=== PATIENT | male | born 1950 | race Caucasian/White ===

== ENCOUNTER 2017-09-29 10:18 | Outpatient (CLI) | payer MEDICARE ==
--- NOTE | 2017-09-29 14:15 | HP ---
DATE OF SERVICE: 09/29/2017 HISTORY OF PRESENT ILLNESS: Mr. Austin Ardon is a very pleasant 67-year-old gentleman who present s to the [facility] for evaluation of multiple wounds of the right upper extremity. The patient st ates that he fell into a cactus approximately 4 months ago. He states that the wounds of his right u pper extremity may have developed from the fall into cactus. Alternatively, he states the wounds may have developed from abrasions or perhaps a combination of both. The patient states that one of the wounds was cultured in the past and he received 4 rounds of p.o. antibiotics for treatment of Staphyl ococcal infection. The patient states he was treated with 2 courses of Bactrim in addition to 2 cour ses of 2 different p.o. antibiotics. The patient states that 13 days ago one of his wounds was cultu red again. The patient was referred to the Wound Center by Dr. Ocampo. The patient states that for 1 month, he treated his wounds with hydrogen peroxide. The patient states that he has fallen into cact us in the past and developed wounds from his fall. PAST MEDICAL HISTORY: Negative for diabetes mellitus, hypertension, or coronary artery disease. PAST SURGICAL HISTORY: Negative. MEDICATION: Multivitamin. ALLERGIES: No known diagnosed allergies. SOCIAL HISTORY: Significant for smoking cigars intermittently for less than 1 year in the past. The patient admits to the heavy consumption of alcohol in the past. He states that he stopped consuming alcohol in 03/2017. FAMILY HISTORY: Negative for diabetes mellitus or coronary artery disease. PHYSICAL EXAMINATION: VITAL SIGNS: Temperature 98.1, pulse 94, blood pressure 165/67. GENERAL: A 67-year-old gentleman sitting on table in examination room in no acute distress. HEENT: Normocephalic, atraumatic. NECK: No nuchal rigidity. CHEST: Clear to auscultation. CARDIOVASCULAR: Regular rate and rhythm. ABDOMEN: Soft. EXTREMITIES: A wound of the dorsum of the right hand is present which measures approximately 3.5 x 2 .0 cm. Two wounds of the right forearm are also present which measure approximately 2.5 x 2.5 cm and 5.0 x 2.0 cm. Granulation tissue is present within the margins of each wound. Necrotic and nonviab le tissue present within the margins of each wound was debrided with an excisional full-thickness reed ridement with the use of scissors and a curette. No purulent drainage is associated with any of the wounds. No erythema of the skin surrounding any of the wounds is present. No maceration of the skin of the periwound of any of the wounds is noted. No significant edema of the right upper extremity i s present on exam today. NEUROLOGIC: Grossly nonfocal. ASSESSMENT AND PLAN: Multiple wounds of right upper extremity as described above. Each wound will b e dressed with Xeroform gauze, Webril, an Soy bandage, and Coban. The patient is to leave the dressi ngs applied in clinic today intact until his followup visit in 1 week. No antibiotics will be prescr ibed today based upon the appearance of the wounds. The patient understands and is in agreement with the preceding treatment plan. All laboratory results in regard to the patient's right upper extremi ty wounds will be obtained from Dr. Ocampo.
[2017-09-29] MEDS ORDERED: Sodium Chloride 0.9% 15 ML NEB ONE (17:01)
[2017-09-29] MEDS ORDERED: Lidocaine 2% Jelly 5 ML TUBE ONE (17:01)
== END 2017-09-29 10:19 | disposition home or self-care (01) ==
LOC: WCC 10:18
PROVIDERS: ATTEND Family Medicine
DX: S61.401D Unspecified open wound of right hand, subsequent encounter (principal); S51.801D Unspecified open wound of right forearm, subsequent encounter
CPT/HCPCS: A4218

== ENCOUNTER 2017-10-06 09:25 | Outpatient (CLI) | payer MEDICARE ==
--- NOTE | 2017-10-06 10:41 | PRG ---
DATE OF SERVICE: 10/06/2017 HISTORY: Mr. Austin Ardon is a very pleasant 67-year-old gentleman who presents to the Wound Cent er for evaluation of multiple wounds of the right upper extremity. The patient previously stated janny t he fell into a cactus approximately 4 months prior to his initial presentation to the Wound Center. He stated that the wounds of his right upper extremity may have developed from the fall into cactus . Alternatively, the patient stated the wounds may have developed from abrasions or perhaps a combin ation of both. The patient stated that one of the wounds was cultured in the past and he received 4 rounds of p.o. antibiotics for treatment of a Staphylococcal infection. The patient stated he was tr eated with 2 courses of Bactrim in addition to 2 courses of 2 different p.o. antibiotics. The patien t stated that 13 days prior to his initial presentation to the Wound Center one of his wounds was cul tured again. The patient was referred to the Wound Center by Dr. Ocampo. The patient stated that for 1 month he treated his wounds with hydrogen peroxide. The patient stated that he had fallen into cact us in the past and also developed wounds from his fall. After being seen in the Wound Center, Xerofo rm gauze, Webril, and an Soy bandage, and Coban were applied to the wounds of the right upper extremi ty. PHYSICAL EXAMINATION: VITAL SIGNS: Temperature 98.1, pulse 88, respirations 16, blood pressure 121/75. EXTREMITIES: A wound of the dorsum of the right hand is present which measures approximately 3.3 x 2 .8 cm. Two wounds of the right forearm are also present which measure approximately 2.6 x 2.3 cm and 4.0 x 3.5 cm. Granulation tissue is present within the margins of each wound. No purulent drainage is associated with any of the wounds. No erythema of the skin surrounding any of the wounds is pres ent. No maceration of the skin of the periwound of any of the wounds is noted. No significant edema of the right upper extremity is present on exam today. ASSESSMENT AND PLAN: Multiple wounds of right upper extremity as described above. Each wound will a gain be dressed with Xeroform gauze, Webril, an Soy bandage, and Coban. The patient has been asked t o leave the dressings applied in clinic today intact until his followup visit in 1 week.
[2017-10-06] MEDS ORDERED: Sodium Chloride 0.9% 15 ML NEB ONE (12:00)
[2017-10-06] MEDS ORDERED: Lidocaine 2% Jelly 5 ML TUBE ONE (12:00)
== END 2017-10-06 09:26 | disposition home or self-care (01) ==
LOC: WCC 09:25
PROVIDERS: ATTEND Family Medicine
DX: L98.499 Non-pressure chronic ulcer of skin of other sites with unspecified severity (principal)

== ENCOUNTER 2017-10-13 14:14 | Outpatient (CLI) | payer MEDICARE ==
[~2017-10-13 14:14] MED LIST: Lidocaine 2% Jelly 5 ML TUBE ONE; Sodium Chloride 0.9% 15 ML NEB ONE
--- NOTE | 2017-10-13 17:57 | PRG ---
DATE OF SERVICE: 10/13/2017 HISTORY: Mr. Austin Ardon is a very pleasant 67-year-old gentleman who presents to the Wound Cent er for evaluation of multiple wounds of the right upper extremity. The patient previously stated janny t he fell into a cactus approximately 4 months prior to his initial presentation to the Wound Center. He stated that the wounds of his right upper extremity may have developed from the fall into cactus . Alternatively, the patient stated the wounds may have developed from abrasions or perhaps a combin ation of both. The patient stated that one of the wounds was cultured in the past and he received 4 rounds of p.o. antibiotics for treatment of a Staphylococcal infection. The patient stated he was tr eated with 2 courses of Bactrim in addition to 2 courses of 2 different p.o. antibiotics. The patien t stated that 13 days prior to his initial presentation to the Wound Center, one of his wounds was cu ltured again. The patient was referred to the Wound Center by Dr. Ocampo. The patient stated that for one month, he treated his wounds with hydrogen peroxide. The patient stated that he had fallen into cactus in the past and also developed wounds from this fall. After being seen in the Wound Center, Xeroform gauze, Webril, Soy, and Coban were applied to the wounds of the right upper extremity. PHYSICAL EXAMINATION: VITAL SIGNS: Temperature 98.3, pulse 73, respirations 18, blood pressure 132/74. EXTREMITIES: A wound of the dorsum of the right hand is present, which measures approximately 3.8 x 1.8 cm. Two wounds of the right forearm are present, which measure approximately 2.5 x 1.9 cm and 4. 0 x 3.0 cm. Granulation tissue is present within the margins of each wound. No purulent drainage is associated with any of the wounds. No erythema of the skin surrounding any of the wounds is present . No maceration of the skin of the periwound of any of the wounds is noted. No significant edema of the right upper extremity is present on exam today. Each wound is characterized by irregular border s. 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 Biopsy of the wounds will be considered if the wounds fail to resolve with the pr esent dressing changes of Xeroform gauze. Each wound will again be dressed with Xeroform gauze, Webr il, an Soy bandage, and Coban. Again, I have asked the patient to leave the dressings applied in cli miquel today intact until his followup visit in 1 week. The patient understands and is in agreement wit h the preceding treatment plan.
== END 2017-10-13 14:15 | disposition home or self-care (01) ==
LOC: WCC 14:14
PROVIDERS: ATTEND Family Medicine
DX: S51.801D Unspecified open wound of right forearm, subsequent encounter (principal); S61.401D Unspecified open wound of right hand, subsequent encounter
CPT/HCPCS: 29581; A4218

== ENCOUNTER 2017-10-20 11:08 | Outpatient (CLI) | payer MEDICARE ==
[~2017-10-20 11:08] MED LIST changes: -Lidocaine 2% Jelly 5 ML TUBE ONE
--- NOTE | 2017-10-20 14:23 | PRG ---
DATE OF SERVICE: 10/20/2017 HISTORY: Mr. Austin Ardon is a very pleasant 67-year-old gentleman who presents to the Wound Cent er for evaluation of multiple wounds of the right upper extremity. The patient previously stated janny t he fell into a cactus approximately 4 months prior to his initial presentation to the Wound Center. He stated that the wounds of his right upper extremity may have developed from a fall into cactus. Alternatively, the patient stated the wounds may have developed from the abrasions or perhaps a comb ination of both. The patient stated that one of the wounds was cultured in the past and he received 4 rounds of p.o. antibiotics for treatment of Staphylococcal infection. The patient stated he was tr eated with 2 courses of Bactrim in addition to 2 courses of 2 different p.o. antibiotics. The patien t stated that 13 days prior to his initial presentation to the Wound Center, one of his wound was cul tured again. The patient was referred to the Wound Center by Dr. Ocampo. The patient stated that for one month, he treated his wounds with hydrogen peroxide. The patient stated that he had fallen into cactus in the past and also developed wounds from this fall. After being seen in the Wound Center, X eroform gauze, Webril, Soy, and Coban were applied to the wounds of the right upper extremity. The [place] has been receiving these dressing changes on a weekly basis. PHYSICAL EXAMINATION: VITAL SIGNS: Temperature 98.2, pulse 81, respirations 18, and blood pressure 131/78. EXTREMITIES: A wound of the dorsum of the right hand is present which measures approximately 4.0 x 3 .0 cm. Two wounds of the right forearm are present which measure approximately 3.0 x 2.5 cm and 5.0 x 3.0 cm. The periwound of the distal right forearm lesion was prepped with alcohol and Betadine. I njectable lidocaine was then utilized to achieve local anesthesia. Four punch biopsy specimens were obtained, three from the periwound and one from the center of the wound and sent to pathology in [facility]. These specimens from the periwound three contained approximately one half skin and one lorenzo lf ulcer. Surgicel was utilized to achieve hemostasis by packing into each biopsy site. All right u pper extremity wounds were then dressed with Xeroform gauze, Webril, Soy, and Coban. ASSESSMENT AND PLAN: Multiple wounds of right upper extremity as described above consistent with pyo derma gangrinosum. Biopsy of one of the wounds was obtained today to look for findings consistent wi th pyoderma gangrenosum and to rule out fungus. I will see Mr. Ardon again in one week. At this shiloh e, he will be given the results of the biopsy. Again, I have asked the patient to leave the dressing s applied in clinic today intact until his followup visit in 1 week.
== END 2017-10-20 11:09 | disposition home or self-care (01) ==
LOC: WCC 11:08
PROVIDERS: ATTEND Family Medicine
DX: L98.498 Non-pressure chronic ulcer of skin of other sites with other specified severity (principal); L30.9 Dermatitis, unspecified; I96 Gangrene, not elsewhere classified
CPT/HCPCS: 11100; 88305; 88312

== ENCOUNTER 2017-10-27 10:56 | Outpatient (CLI) | payer MEDICARE ==
--- NOTE | 2017-10-27 15:29 | PRG ---
DATE OF SERVICE: 10/27/2017 SUBJECTIVE: Mr. Austin Ardon is a very pleasant 67-year-old gentleman who presents to the Wound C enter for evaluation of multiple wounds of the right upper extremity. Biopsy of one of the 2 wounds of the right forearm was obtained at the time of the patient's last visit which returned with histolo gic findings supportive of pyoderma gangrinosum. Biopsy revealed no fungal organisms or dysplasia/ma lignancy. For his wounds, Mr. Ardon has been receiving dressing changes of Xeroform gauze, Webril, A ce, and Coban on a weekly basis here in the Wound Center. OBJECTIVE: VITAL SIGNS: Temperature 97.6, pulse 78, respirations 19, blood pressure 112/78. EXTREMITIES: All three wounds of the right upper extremity have improved in their appearance since t he patient's last visit. No purulent drainage is associated with any of the wounds. No erythema of the skin surrounding any of the wounds is present. No maceration of the skin of the periwound of any of the wounds is noted. 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 Biopsy of one of the 2 forearm wounds was obtained at the time of the patient's l ast visit and the histologic findings also returned supportive of the clinical impression of pyoderma gangrenosum. The patient has been given a prescription for clobetasol 0.05% ointment to be applied to the wounds on a daily basis after cleansing and irrigation. The patient has been given the result s of his biopsy today. I will see Mr. Ardon again in 2-3 weeks. The patient has been told he may dr ess his wounds as needed with Krist[facility]. The patient understands and is in agreement with the preceding treatment plan.
== END 2017-10-27 10:57 | disposition home or self-care (01) ==
LOC: WCC 10:56
PROVIDERS: ATTEND Family Medicine
DX: S51.801D Unspecified open wound of right forearm, subsequent encounter (principal)
CPT/HCPCS: 97602

== ENCOUNTER 2019-04-02 16:56 | Inpatient (IN) | payer MEDICARE ==
--- NOTE | 2019-04-02 17:27 | RAD ---
EXAM: Single view of the chest HISTORY: Cough COMPARISON: None FINDINGS: Single view of the chest shows a normal sized cardiomediastinal silhouette. There is consol idation in the left lower lobe consistent with an infiltrate. An adjacent pleural effusion may be present. The bones are unremarkable. IMPRESSION: Left lower lobe infiltrate and possible adjacent pleural effusion.
[2019-04-02 17:39] LABS: Hemoglobin 12.9 g/dL (14.0-18.0); Mean Corpuscular HGB CONC 33.5 g/dL (32.0-36.0); Mean Corpuscular Hemoglobin 31.8 pg (27.0-31.0); Mean Corpuscular Volume 94.9 fL (78.0-98.0); Mean Platelet Volume 9.4 fL (7.4-10.4); Platelet Count 111 thou/uL (130-400); Red Blood Cell (RBC) Count 4.06 mill/uL (4.70-6.10); White Blood Cell (WBC) Count 19.6 thou/uL (4.8-10.8)
[2019-04-02 17:49] LABS: #Lymphocytes 0.6 thou/uL (1.20-3.40); #Monocytes 1.5 thou/uL (0.11-0.59); #Neutrophils 17.3 thou/uL (1.40-6.50); %Basophils 0.1 % (0.0-1.0); %Eosinophils 0.2 % (0.0-10.0); %Monocytes 7.8 % (0.0-10.0); Platelet Morphology Comment Appears Decreased; RBC Morphology Normal
[2019-04-02 17:57] LABS: ALT (SGPT) 20 U/L (8-55); AST (SGOT) 21 U/L (5-34); Albumin 3.4 g/dL (3.4-4.8); Alkaline Phosphatase 80 U/L (40-110); Anion Gap 17 mmol/L (10-20); BUN (Urea Nitrogen) 19 mg/dL (8.4-25.7); Bilirubin, Total 1.4 mg/dL (0.2-1.2); Calc. Creatinine Clearance 0 mL/min (70-130); Calcium 8.5 mg/dL (7.8-10.44); Carbon Dioxide 19 mmol/L (23-31); Chloride 98 mmol/L (98-107); Estimated GFR-MDRD 89; Globulin 3.6 g/dL (2.4-3.5); Glucose 130 mg/dL (80-115); Potassium 4.1 mmol/L (3.5-5.1); Sodium 130 mmol/L (136-145)
[2019-04-02] MEDS ORDERED: Sodium Chloride 0.9% 100 ML ONE (18:29)
[2019-04-02] MEDS ORDERED: cefTRIAXone\\ROCEPHIN 2 GM VIAL ONE (18:29)
[2019-04-02] MEDS ORDERED: Azithromycin 500 MG VIAL ONE (18:36)
[2019-04-02] MEDS ORDERED: Acetaminophen 325 MG TAB ONE (18:41)
[2019-04-02 19:22] LABS: Bacteria/HPF None Seen HPF (None Seen); Bilirubin 1+ (Negative); Blood, Urine Negative (Negative); Clarity Clear (Clear); Glucose, Urine (Dipstick) Normal (Negative); Leukocyte Negative Leu/uL (Negative); Mucous/LPF 2+ LPF (<2+); Nitrite Negative (Negative); Protein, Urine (Dipstick) 50 mg/dL (Neg-Trace); RBC/HPF 0-3 HPF (0-3); Squamous Epithelial 0-3 HPF (0-3); Urobilinogen Greater than 12 mg/dL (Less than 2); WBC/HPF 0-3 HPF (0-3)
[2019-04-02] MEDS ORDERED: Acetaminophen 325 MG TAB PO PRN (20:34)
[2019-04-02] MEDS ORDERED: Ondansetron PF 4 MG/2 ML Vial IVP PRN (20:34)
[2019-04-02] MEDS ORDERED: hydrALAZINE 20 MG/ML VIAL SLOW IVP PRN (20:34)
[2019-04-02] MEDS ORDERED: Ondansetron ODT 4 MG TAB PO PRN (20:34)
[2019-04-02] MEDS ORDERED: Benzonatate 100 MG CAP PO PRN (20:34)
[2019-04-02] MEDS ORDERED: HYDROcodone/Acetaminophen 5/325 mg Tablet PO PRN (20:34)
[2019-04-02 21:41] LABS: Lactic Acid 1.9 mmol/L (0.5-2.2)
[2019-04-02] MEDS: Famotidine 20 MG TAB PO SCH (21:43)
[2019-04-02] MEDS: Sodium Chloride 0.9% 1,000 ML IV SCH (21:43)
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
[2019-04-03] MEDS ORDERED: Enoxaparin Sodium 80 MG/0.8 ML SYRINGE SC SCH (02:15)
[2019-04-03] MEDS: Sodium Chloride 0.9% 1,000 ML IV SCH (03:33)
[2019-04-03 05:39] LABS: #Lymphocytes 0.5 thou/uL (1.20-3.40); #Monocytes 1.2 thou/uL (0.11-0.59); #Neutrophils 13.6 thou/uL (1.40-6.50); %Eosinophils 0.2 % (0.0-10.0); %Lymphocytes 3.3 % (21.0-51.0); %Monocytes 7.8 % (0.0-10.0); %Neutrophils 88.6 % (42.0-75.0); Mean Corpuscular HGB CONC 33.3 g/dL (32.0-36.0); Mean Corpuscular Hemoglobin 32.2 pg (27.0-31.0); Mean Corpuscular Volume 96.8 fL (78.0-98.0); Platelet Count 98 thou/uL (130-400); RBC Distribution Width 11.9 % (11.5-14.5); Red Blood Cell (RBC) Count 2.48 mill/uL (4.70-6.10); White Blood Cell (WBC) Count 15.3 thou/uL (4.8-10.8)
[2019-04-03 05:53] LABS: Anion Gap 12 mmol/L (10-20); BUN (Urea Nitrogen) 13 mg/dL (8.4-25.7); Calc. Creatinine Clearance 106 mL/min (70-130); Calcium 7.5 mg/dL (7.8-10.44); Carbon Dioxide 20 mmol/L (23-31); Chloride 105 mmol/L (98-107); Estimated GFR-MDRD Greater than 90; Glucose 95 mg/dL (80-115); Potassium 3.7 mmol/L (3.5-5.1); Sodium 133 mmol/L (136-145)
[2019-04-03 08:42] LABS: Iron 11 ug/dL (65-175); Iron Binding Capacity, Total 108 mcg/dL (261-462)
[2019-04-03] MEDS ORDERED: Enoxaparin Sodium 40 MG/0.4 ML SYRINGE SC SCH (09:00)
[2019-04-03] MEDS: Famotidine 20 MG TAB PO SCH ×2 (09:04→20:19)
--- NOTE | 2019-04-03 09:19 | ULT ---
PRELIMINARY REPORT/[facility]/EMERGENCY AFTER HOURS PROCEDURE: Addendum created by Elvis Wharton MD on 04/03/2019 1:46 AM Central Time ( & Al) Findings disc ussed with Alberto Barrow RN at time of interpretation. Initial Report created on 04/03/2019 1:38 AM Cent ral Time ( & Al) PROCEDURE INFORMATION: Exam: US Duplex Right Lower Extremity Veins, Limited Exam date and time: 04/03/2019 12:58 AM Clinical history: 68 years old, male; Edema, localized; Lower extremity, right TECHNIQUE: Imaging protocol: Real-time Duplex ultrasound of the Right Lower Extremity with 2-D fournier scale, color Doppler flow and spectral waveform analysis with image documentation. Limited exam was focused on th e right lower extremity veins. COMPARISON: No relevant prior studies available. FINDINGS: Right deep veins: Right common femoral vein is patent. There is visible occlusive thrombosis from the mid femoral vein through the popliteal vein with partially occlusive thrombosis in the posterior tib ial vein and anterior tibial vein. Right superficial veins: Unremarkable. Saphenofemoral junction is patent without thrombus. Soft tissues: Unremarkable. IMPRESSION: There is visible occlusive thrombosis from the mid femoral vein through the popliteal vein with parti ally occlusive thrombosis in the posterior tibial vein and anterior tibial vein. Thank you for allowing us to participate in the care of your patient. Dictated and Authenticated by: Elvis Wharton MD 04/03/2019 1:38 AM Central Time ( & [place]) FINAL REPORT RIGHT LOWER EXTREMITY VENOUS DOPPLER ULTRASOUND: DATE: 04/03/2019. COMPARISON: None. HISTORY: Pain, swelling, assess for DVT. FINDINGS: I agree with the preliminary report. Right lower extremity venous structures are assessed with color flow and spectral analysis. The right common femoral vein and greater saphenous vein are patent. T he profunda femoral vein is patent. The mid femoral vein, distal femoral vein, and popliteal vein are distended and filled with echogenic thrombus. Right posterior tibial vein is patent. IMPRESSION: Extensive DVT on the right including the femoral vein and popliteal vein. POS: [place]
[2019-04-03 14:11] VITALS: BMI 19.9
[2019-04-03] MEDS: cefTRIAXone\\ROCEPHIN 1 GM in Sodium Chloride 0.9% 100 ML IVPB SCH (18:05)
[2019-04-03] MEDS: Azithromycin 500 MG in Sodium Chloride 0.9% 250 ML 250 ML IVPB SCH (18:06)
[2019-04-03] MEDS: Enoxaparin Sodium 80 MG/0.8 ML SYRINGE SC SCH (18:07)
--- NOTE | 2019-04-03 18:26 | PDOC.HOSPP ---
- Subjective Encounter Date: 04/03/19 Encounter Time: 16:35 Subjective: Mr. Ardon was seen today in follow-up of pneumonia and DVT. He says he continues to have pain on his left side, and some dyspnea. - Objective Vital Signs & Weight: Vital Signs (12 hours) Temp Pulse Resp BP Pulse Ox Pulse Ox 04/03/19 10:50 98 04/03/19 08:00 92 L 04/03/19 07:26 98.2 F 89 24 H 98/65 92 L Weight Admit Weight 152 lb 9.6 oz Weight 155 lb I&O: 04/02/19 04/03/19 04/04/19 06:59 06:59 06:59 Intake Total 1610 Balance 1610 Result Diagrams: 04/03/19 05:16 04/03/19 05:16 Hospitalist ROS - Medication Medications: Active Medications Generic Name Dose Route Start Last Admin Trade Name Freq PRN Reason Stop Dose Admin Enoxaparin Sodium 70 mg 04/03/19 18:00 04/03/19 18:07 Lovenox SC 70 mg 0600,1800 MARA Administration Famotidine 20 mg 04/02/19 21:00 04/03/19 09:04 Pepcid PO 20 mg BID MARA Administration Azithromycin 500 mg/ Sodium 250 mls @ 250 mls/hr 04/03/19 18:00 04/03/19 18: 06 Chloride IVPB 250 mls Q24HR MARA Administration Ceftriaxone Sodium 1 gm/ 100 mls @ 200 mls/hr 04/03/19 18:00 04/03/19 18:05 Sodium Chloride IVPB 100 mls Q24HR MARA Administration - Exam Eye: PERRL, anicteric sclera Heart: RRR, no murmur, no gallops, no rubs, normal peripheral pulses Respiratory: CTAB, rales Gastrointestinal: soft, non-tender, non-distended, normal bowel sounds, no palpable masses, no hepatomegaly, no splenomegaly Extremities: 1+ LE edema (+ swelling of the right lower extremity, + varicose veins) Hosp A/P (1) Community acquired pneumonia Code(s): J18.9 - PNEUMONIA, UNSPECIFIED ORGANISM Status: Acute (2) DVT (deep venous thrombosis) Code(s): I82.409 - ACUTE EMBOLISM AND THOMBOS UNSP DEEP VN UNSP LOWER EXTREMITY Status: Acute (3) Bipolar disorder Code(s): F31.9 - BIPOLAR DISORDER, UNSPECIFIED Status: Chronic (4) Malnutrition of moderate degree Code(s): E44.0 - MODERATE PROTEIN-CALORIE MALNUTRITION Status: Acute (5) Anemia, chronic disease Code(s): D63.8 - ANEMIA IN OTHER CHRONIC DISEASES CLASSIFIED ELSEWHERE Status : Chronic - Plan * Community acquired Pneumonia- will continue Rocephin and Azithromycin * Right lower extremity DVT- continue Lovenox, and will need to change to an oral anticoagulant in the AM * Malnutrition- continue nutritional supplementation- and may need home assistance, meals on wheels ? Home health * Anemia- consistent with both iron deficiency and anemia of chronic disease- will check stool for occult blood
[2019-04-03] MEDS ORDERED: FLU VACC TS2019-20(65YR UP)/PF 180 MCG/0.5 ML SYRINGE IM ONE (21:00)
[2019-04-04] MEDS: Enoxaparin Sodium 80 MG/0.8 ML SYRINGE SC SCH ×2 (05:39→18:41)
[2019-04-04 06:07] LABS: #Eosinphils 0.1 thou/uL (0.0-0.7); #Lymphocytes 0.5 thou/uL (1.20-3.40); #Monocytes 0.9 thou/uL (0.11-0.59); #Neutrophils 10.9 thou/uL (1.40-6.50); %Basophils 0.2 % (0.0-1.0); %Eosinophils 0.4 % (0.0-10.0); %Lymphocytes 4.1 % (21.0-51.0); %Monocytes 7.2 % (0.0-10.0); %Neutrophils 88.1 % (42.0-75.0); Hemoglobin 9.5 g/dL (14.0-18.0); Mean Corpuscular HGB CONC 33.1 g/dL (32.0-36.0); Mean Corpuscular Hemoglobin 32.1 pg (27.0-31.0); Mean Corpuscular Volume 96.7 fL (78.0-98.0); Platelet Count 133 thou/uL (130-400); RBC Distribution Width 11.9 % (11.5-14.5); Red Blood Cell (RBC) Count 2.96 mill/uL (4.70-6.10); White Blood Cell (WBC) Count 12.3 thou/uL (4.8-10.8)
[2019-04-04 06:23] LABS: Anion Gap 11 mmol/L (10-20); BUN (Urea Nitrogen) 13 mg/dL (8.4-25.7); Calc. Creatinine Clearance 110 mL/min (70-130); Calcium 7.8 mg/dL (7.8-10.44); Carbon Dioxide 23 mmol/L (23-31); Chloride 103 mmol/L (98-107); Estimated GFR-MDRD Greater than 90; Glucose 82 mg/dL (80-115); Potassium 3.7 mmol/L (3.5-5.1); Sodium 133 mmol/L (136-145)
[2019-04-04] MEDS ORDERED: Sodium Chloride 0.9% 1,000 ML IV SCH (09:00)
[2019-04-04] MEDS ORDERED: Sodium Chloride 0.9% 500 ML IV SCH (09:00)
[2019-04-04] MEDS: Famotidine 20 MG TAB PO SCH ×2 (09:05→21:17)
[2019-04-04] MEDS: Ferrous Sulfate 325 MG TAB PO SCH ×2 (09:05→17:44)
[2019-04-04] MEDS ORDERED: ISOVUE-370 76%-LOCM 1 ML ONE (10:32)
--- NOTE | 2019-04-04 10:38 | CT ---
CT angiogram chest: 04/04/2019 COMPARISON: None HISTORY: Positive DVT. Shortness of breath, concern for pulmonary embolism TECHNIQUE: Axial CT imaging at 2.5 mm intervals from thoracic inlet through upper abdomen with IV con trast using CT angiogram protocol. Coronal and sagittal 3-D reformatted imaging obtained. FINDINGS: Subcentimeter scattered hypodensities are noted within the liver suggesting cysts, too smal l to characterize and incompletely imaged on this exam. There is a possible hypodense nodule within the adrenal gland on the left, incompletely imaged on this examination, measuring up to 1.[address] cm[address] dedicated CT of the abdomen. There is extensive pulmonary arterial embolism with large volume clot within the distal aspect of the left main pulmonary artery extending into lobar, segmental, and subsegmental branches supplying the left upper and left lower lobe. Extensive clot within the lobar, segmental, and subsegmental pulm onary arteries noted in the left lower lobe which appears occlusive. There is associated extensive interstitial and alveolar opacity with focal areas of extensive consolidation involving the left lowe r lobe inferiorly which may signify a degree of pulmonary infarction. There is a small associated left pleural effusion. There is prominent clot within the distal aspect of the main right pulmonary artery with extension in to lobar, segmental, and subsegmental pulmonary artery branches of the right upper lobe, right lower lobe, and right middle lobe. Motion artifact limits detailed assessment of the right lung, particularly the right lung base. There is a questionable nodule within the inferior lateral aspect of the left lower lobe on axial image 95 measuring 9-10 mm in transverse dimension, for which follow-up is advised. Review of the osseous structures demonstrate no acute findings. The right atrium and right ventricle are prominent when compared to the left and there is shift of the intraventricular septum to the left which may signify right heart strain. IMPRESSION: Large volume extensive bilateral pulmonary arterial emboli. Possible pulmonary infarction of left lower lobe. Question right heart strain. Incidental findings include possible left adrenal nodule and right lower lobe pulmonary nodule, for w [facility] follow-up is advised. Dr. Kinsey made aware at 10:35 AM 04/04/2019.
--- NOTE | 2019-04-04 11:55 | PDOC.HOSPP ---
- Subjective Encounter Date: 04/04/19 Encounter Time: 11:54 Subjective: Mr. Ardon was seen today in follow-up of pneumonia. She does not have any new complaints, but was noted to have an elevated heart rate, and appears more dyspneic. - Objective Vital Signs & Weight: Vital Signs (12 hours) Temp Pulse Resp BP Pulse Ox 04/04/19 11:35 99.5 F 86 18 94/64 97 04/04/19 08:00 94 L 04/04/19 07:49 98.3 F 81 18 105/71 94 L 04/04/19 04:00 98.4 F 91 18 122/77 93 L 04/04/19 00:00 99.2 F 86 18 94/61 93 L Weight Admit Weight 152 lb 9.6 oz Weight 155 lb I&O: 04/03/19 04/04/19 04/05/19 06:59 06:59 06:59 Intake Total 1610 240 Balance 1610 240 Result Diagrams: 04/04/19 05:27 04/04/19 05:27 Hospitalist ROS - Medication Medications: Active Medications Generic Name Dose Route Start Last Admin Trade Name Freq PRN Reason Stop Dose Admin Enoxaparin Sodium 70 mg 04/03/19 18:00 04/04/19 05:39 Lovenox SC 70 mg 0600,1800 MARA Administration Famotidine 20 mg 04/02/19 21:00 04/04/19 09:05 Pepcid PO 20 mg BID MARA Administration Ferrous Sulfate 325 mg 04/04/19 08:00 04/04/19 09:05 Feosol PO 325 mg BID-WM MARA Administration Azithromycin 500 mg/ Sodium 250 mls @ 250 mls/hr 04/03/19 18:00 04/03/19 18: 06 Chloride IVPB 250 mls Q24HR MARA Administration Ceftriaxone Sodium 1 gm/ 100 mls @ 200 mls/hr 04/03/19 18:00 04/03/19 18:05 Sodium Chloride IVPB 100 mls Q24HR MARA Administration - Exam Eye: PERRL, anicteric sclera Heart: RRR, no murmur, no gallops, no rubs, normal peripheral pulses Respiratory: CTAB Gastrointestinal: soft, non-tender, non-distended, normal bowel sounds, no palpable masses, no hepatomegaly Extremities: no cyanosis, 1+ LE edema (+ swelling in the right lower extremity, varicose veins) Hosp A/P (1) Community acquired pneumonia Code(s): J18.9 - PNEUMONIA, UNSPECIFIED ORGANISM Status: Acute (2) DVT (deep venous thrombosis) Code(s): I82.409 - ACUTE EMBOLISM AND THOMBOS UNSP DEEP VN UNSP LOWER EXTREMITY Status: Acute (3) Bipolar disorder Code(s): F31.9 - BIPOLAR DISORDER, UNSPECIFIED Status: Chronic (4) Malnutrition of moderate degree Code(s): E44.0 - MODERATE PROTEIN-CALORIE MALNUTRITION Status: Acute (5) Anemia, chronic disease Code(s): D63.8 - ANEMIA IN OTHER CHRONIC DISEASES CLASSIFIED ELSEWHERE Status : Chronic - Plan * Bilateral PE- due to sinus tachycardia, and some increase in dyspnea a CTA chest was ordered, and he was found to have bilateral PE, with evidence of RV strain.- he has been moved to telemetry, and will consult PCCM. Will also check an Echo as well- continue Lovenox * Community acquired Pneumonia- will continue Rocephin and Azithromycin * Right lower extremity DVT- continue Lovenox- and will need to determine the best anticoagulant- I suspect one of the DOAC's if he is able to afford it- will consult Case management * Malnutrition- continue nutritional supplementation- and may need home assistance, meals on wheels ? Home health * Anemia- consistent with both iron deficiency and anemia of chronic disease- will check stool for occult blood
[2019-04-04] MEDS ORDERED: Sodium Chloride 0.9% 10 ML ONE (15:48)
--- NOTE | 2019-04-04 17:23 | CON ---
DATE OF CONSULTATION: 04/04/2019 This encompassed 70 minutes of time, of that time, greater than 50% was spent with the patient and/or the patient's unit in the hospital. CONSULTING PHYSICIAN: Dr. Kinsey. REASON FOR CONSULTATION: Pulmonary embolism. HISTORY OF PRESENT ILLNESS: The patient is a 68-year-old male, who was hospitalized on 04/02 with complaints of not feeling well and numerous falls. He tells me he has been having substernal chest pain on the left for the last couple of months. He has had dyspnea on exertion for at least that amount of time. He coughed up some darkish bloody material about 2 days prior to admission. He says he has hurt his right leg on numerous occasions when falling. Since admission, he has been found to have bilateral large central pulmonary emboli. Additionally, he has a right lower extremity DVT. PAST MEDICAL HISTORY: Bipolar disorder. PAST SURGICAL HISTORY: None. ALLERGIES: NONE. SOCIAL HISTORY: He does occasionally drink alcohol. He is a nonsmoker. Does not use illicit drugs. He lives near [place]. FAMILY MEDICAL HISTORY: Remarkable for Parkinson disease. MEDICATIONS: He was on no home medications prior to admission. His hospital medications include: 1. Azithromycin. 2. Ceftriaxone. 3. Enoxaparin. 4. Pepcid. 5. Iron sulfate. 6. Numerous p.r.n.'s. REVIEW OF SYSTEMS: He is extremely weak. He has had no fever, chills, or hematemesis. He has had hemoptysis. No melena. No hematochezia. No hematuria. No dysuria. PHYSICAL EXAMINATION: VITAL SIGNS: Temperature is 99.5, pulse 86, respirations 18, O2 saturation 97% on 2 L, and blood pressure 94/64. GENERAL: He is awake and alert. He has a generalized disheveled appearance. HEENT: Remarkable for equally reactive pupils. Oropharynx clear. NECK: No adenopathy or JVD. LUNGS: Clear without wheezing or rhonchi. CARDIAC: S1 and S2 regular without audible murmur. ABDOMEN: Soft, nontender to palpation. EXTREMITIES: No clubbing or cyanosis. His right lower extremity has increased circumference compared to the left. LABORATORY DATA: White blood cell count 12.3, hematocrit 28.6, platelet count 133. Sodium 133, potassium 3.7, chloride 103, CO2 of 23, BUN 13, creatinine 0.6, and glucose 82. Ferritin levels 898. CT pulmonary angiogram was reviewed. ASSESSMENT: 1. Bilateral pulmonary emboli. 2. Deep venous thrombosis. 3. Generalized failure to thrive with protein-calorie malnutrition. RECOMMENDATIONS: 1. I agree with anticoagulation with Lovenox. In a few days, he can probably be switched over to either Xarelto or Eliquis. 2. He needs age-appropriate cancer screening given his weight loss and chronic anemia. Thank you for the referral. Job ID: [id number]
[2019-04-04] MEDS: cefTRIAXone\\ROCEPHIN 1 GM in Sodium Chloride 0.9% 100 ML IVPB SCH (17:43)
[2019-04-04] MEDS: Azithromycin 500 MG in Sodium Chloride 0.9% 250 ML 250 ML IVPB SCH (18:27)
[2019-04-05] MEDS: Enoxaparin Sodium 80 MG/0.8 ML SYRINGE SC SCH ×2 (05:28→17:16)
[2019-04-05] MEDS ORDERED: Sodium Chloride 0.9% 10 ML ONE (08:11)
--- NOTE | 2019-04-05 09:28 | PRG ---
DATE OF SERVICE: 04/05/2019 SUBJECTIVE: The patient is doing about the same. He is very weak. OBJECTIVE: VITAL SIGNS: His temperature is 97.7, pulse 87, respirations 16, O2 saturation 96% on 2 L, and blood pressure 102/67. GENERAL: He has a general disheveled appearance. HEENT: Otherwise, unremarkable. NECK: No JVD. LUNGS: Clear anteriorly. CARDIAC: S1 and S2. Regular. ABDOMEN: Soft. EXTREMITIES: Severe muscle wasting. ASSESSMENT: Bilateral pulmonary emboli. PLAN: He needs to be anticoagulated for 6 months. From my standpoint, he can be changed over from enoxaparin to either Xarelto or Eliquis at any time. It looks like he needs to be further worked up for his significant weight loss. No further recommendations at this time. Job ID: [id number]
[2019-04-05] MEDS: Famotidine 20 MG TAB PO SCH ×2 (09:37→20:03)
[2019-04-05] MEDS: Ferrous Sulfate 325 MG TAB PO SCH ×2 (09:37→17:23)
[2019-04-05 13:02] LABS: #Eosinphils 0.1 thou/uL (0.0-0.7); #Lymphocytes 0.5 thou/uL (1.20-3.40); #Monocytes 0.8 thou/uL (0.11-0.59); #Neutrophils 9.6 thou/uL (1.40-6.50); %Basophils 0.3 % (0.0-1.0); %Eosinophils 0.6 % (0.0-10.0); %Lymphocytes 4.5 % (21.0-51.0); %Monocytes 7.1 % (0.0-10.0); %Neutrophils 87.6 % (42.0-75.0); Hemoglobin 11.2 g/dL (14.0-18.0); Mean Corpuscular HGB CONC 32.5 g/dL (32.0-36.0); Mean Corpuscular Hemoglobin 31.5 pg (27.0-31.0); Mean Corpuscular Volume 97.1 fL (78.0-98.0); Mean Platelet Volume 7.6 fL (7.4-10.4); Platelet Count 256 thou/uL (130-400); Red Blood Cell (RBC) Count 3.54 mill/uL (4.70-6.10)
--- NOTE | 2019-04-05 16:17 | PDOC.HOSPP ---
- Subjective Encounter Date: 04/05/19 Encounter Time: 16:15 Subjective: Mr. Ardon was seen today in follow-up of Bilateral PE, and DVT, and Pneumonia. He does not have any new complaints. He still has stable chest pain. He denies shortness of breath. - Objective Vital Signs & Weight: Vital Signs (12 hours) Temp Pulse Resp BP Pulse Ox 04/05/19 11:38 97.8 F 75 17 101/65 96 04/05/19 08:00 96 04/05/19 07:19 97.7 F 77 16 102/67 96 Weight Admit Weight 152 lb 9.6 oz Weight 155 lb I&O: 04/04/19 04/05/19 04/06/19 06:59 06:59 06:59 Intake Total 1180 Output Total 300 Balance 880 Result Diagrams: 04/05/19 12:48 04/04/19 05:27 Hospitalist ROS - Medication Medications: Active Medications Generic Name Dose Route Start Last Admin Trade Name Freq PRN Reason Stop Dose Admin Enoxaparin Sodium 70 mg 04/03/19 18:00 04/05/19 05:28 Lovenox SC 70 mg 0600,1800 MARA Administration Famotidine 20 mg 04/02/19 21:00 04/05/19 09:37 Pepcid PO 20 mg BID MARA Administration Ferrous Sulfate 325 mg 04/04/19 08:00 04/05/19 09:37 Feosol PO 325 mg BID-WM MARA Administration Azithromycin 500 mg/ Sodium 250 mls @ 250 mls/hr 04/03/19 18:00 04/04/19 18: 27 Chloride IVPB 250 mls Q24HR MARA Administration Ceftriaxone Sodium 1 gm/ 100 mls @ 200 mls/hr 04/03/19 18:00 04/04/19 17:43 Sodium Chloride IVPB 100 mls Q24HR MARA Administration - Exam Eye: PERRL Heart: RRR, no murmur, no gallops Respiratory: CTAB, no wheezes, no rales, no ronchi, normal chest expansion Gastrointestinal: soft, non-tender, non-distended, normal bowel sounds, no palpable masses, no hepatomegaly Extremities: no cyanosis, no clubbing, no edema Hosp A/P (1) Community acquired pneumonia Code(s): J18.9 - PNEUMONIA, UNSPECIFIED ORGANISM Status: Acute (2) DVT (deep venous thrombosis) Code(s): I82.409 - ACUTE EMBOLISM AND THOMBOS UNSP DEEP VN UNSP LOWER EXTREMITY Status: Acute (3) Bipolar disorder Code(s): F31.9 - BIPOLAR DISORDER, UNSPECIFIED Status: Chronic (4) Malnutrition of moderate degree Code(s): E44.0 - MODERATE PROTEIN-CALORIE MALNUTRITION Status: Acute (5) Anemia, chronic disease Code(s): D63.8 - ANEMIA IN OTHER CHRONIC DISEASES CLASSIFIED ELSEWHERE Status : Chronic - Plan * Bilateral PE and right lower extremity DVT Continue Lovenox- will likely transition to Xarelto or Eliquis- he can get a one month supply from Case management- and then he will need to apply for further assistance. I have a call out to his to see if she can help with this * Community acquired Pneumonia- will continue Rocephin and Azithromycin * Malnutrition- continue nutritional supplementation- and may need home assistance, meals on wheels ? Home health * Anemia- his H&H is stable
[2019-04-05] MEDS: cefTRIAXone\\ROCEPHIN 1 GM in Sodium Chloride 0.9% 100 ML IVPB SCH (17:15)
[2019-04-05] MEDS: Azithromycin 500 MG in Sodium Chloride 0.9% 250 ML 250 ML IVPB SCH (17:25)
[2019-04-06] MEDS: Enoxaparin Sodium 80 MG/0.8 ML SYRINGE SC SCH ×2 (05:29→17:55)
[2019-04-06 05:51] LABS: #Eosinphils 0.1 thou/uL (0.0-0.7); #Lymphocytes 0.6 thou/uL (1.20-3.40); #Monocytes 0.7 thou/uL (0.11-0.59); #Neutrophils 6.8 thou/uL (1.40-6.50); %Basophils 0.4 % (0.0-1.0); %Eosinophils 1.7 % (0.0-10.0); %Lymphocytes 7.1 % (21.0-51.0); %Neutrophils 82.9 % (42.0-75.0); Hemoglobin 9.6 g/dL (14.0-18.0); Mean Corpuscular HGB CONC 32.8 g/dL (32.0-36.0); Mean Corpuscular Hemoglobin 31.7 pg (27.0-31.0); Mean Corpuscular Volume 96.5 fL (78.0-98.0); Mean Platelet Volume 7.7 fL (7.4-10.4); Platelet Count 263 thou/uL (130-400); Red Blood Cell (RBC) Count 3.02 mill/uL (4.70-6.10); White Blood Cell (WBC) Count 8.2 thou/uL (4.8-10.8)
[2019-04-06] MEDS: Famotidine 20 MG TAB PO SCH ×2 (08:47→20:30)
[2019-04-06] MEDS: Ferrous Sulfate 325 MG TAB PO SCH ×2 (08:47→17:55)
--- NOTE | 2019-04-06 10:25 | PRG ---
DATE OF SERVICE: 04/06/2019 SUBJECTIVE: He is breathing a little better. He still has not moved very much. OBJECTIVE: VITAL SIGNS: Temperature 98.1, pulse 71, respirations 16, O2 saturation 96% on 2 L, blood pressure 96/66. HEENT: Unremarkable. NECK: No adenopathy or JVD. LUNGS: Clear. CARDIAC: S1, S2. Regular. ABDOMEN: Soft. EXTREMITIES: His right lower extremity is now back to normal size. LABORATORY DATA: White blood cell count 8.2, hematocrit 29.1, and platelet count 363. ASSESSMENT: 1. Deep venous thrombosis/pulmonary embolism. 2. 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 PLAN: The patient can be converted over to Eliquis or Xarelto at any time. Duration of therapy should be 6 months. No further recommendations. Please recall if further assistance needed. Job ID: [id number]
--- NOTE | 2019-04-06 17:28 | PDOC.HOSPP ---
- Subjective Encounter Date: 04/06/19 Encounter Time: 17:25 Subjective: Mr. Ardon was seen today in follow-up of pneumonia and PE and DVT. He does not have any new complaints. - Objective Vital Signs & Weight: Vital Signs (12 hours) Temp Pulse Resp BP Pulse Ox 04/06/19 11:00 98.4 F 76 16 97/65 97 04/06/19 07:30 98.3 F 82 18 106/70 95 Weight Admit Weight 152 lb 9.6 oz Weight 155 lb I&O: 04/05/19 04/06/19 04/07/19 06:59 06:59 06:59 Intake Total 1430 1090 Output Total 300 400 Balance 1130 690 Result Diagrams: 04/06/19 04:54 04/04/19 05:27 Hospitalist ROS - Medication Medications: Active Medications Generic Name Dose Route Start Last Admin Trade Name Freq PRN Reason Stop Dose Admin Enoxaparin Sodium 70 mg 04/03/19 18:00 04/06/19 05:29 Lovenox SC 04/07/19 00:00 70 mg 0600,1800 MARA Administration Famotidine 20 mg 04/02/19 21:00 04/06/19 08:47 Pepcid PO 20 mg BID MARA Administration Ferrous Sulfate 325 mg 04/04/19 08:00 04/06/19 08:47 Feosol PO 325 mg BID-WM MARA Administration Sodium Chloride 10 ml 04/02/19 21:09 04/06/19 08:57 Flush - Normal Saline IVF 10 ml PRN PRN Administration Saline Flush - Exam Eye: PERRL Heart: RRR, no murmur, no gallops, no rubs, normal peripheral pulses Respiratory: CTAB, no wheezes, no rales, no ronchi, normal chest expansion, no tachypnea, normal percussion Gastrointestinal: soft, non-tender, non-distended, normal bowel sounds, no palpable masses, no hepatomegaly Extremities: no cyanosis, no clubbing, no edema Hosp A/P (1) Community acquired pneumonia Code(s): J18.9 - PNEUMONIA, UNSPECIFIED ORGANISM Status: Acute (2) DVT (deep venous thrombosis) Code(s): I82.409 - ACUTE EMBOLISM AND THOMBOS UNSP DEEP VN UNSP LOWER EXTREMITY Status: Acute (3) Bipolar disorder Code(s): F31.9 - BIPOLAR DISORDER, UNSPECIFIED Status: Chronic (4) Malnutrition of moderate degree Code(s): E44.0 - MODERATE PROTEIN-CALORIE MALNUTRITION Status: Acute (5) Anemia, chronic disease Code(s): D63.8 - ANEMIA IN OTHER CHRONIC DISEASES CLASSIFIED ELSEWHERE Status : Chronic - Plan * Bilateral PE and right lower extremity DVT Continue Lovenox- will transition to Eliquis tomorrow. His was at bedside, and was given the information ( phone number to call ) to obtain assistance with the medication beyond one month * Community acquired Pneumonia- will transition him to Omnicef * Malnutrition- patient's says he is a "pick eater" and she does not feel they need any additional assistance at home * Anemia- his H&H is stable * Plan on discharge home tomorrow
[2019-04-06] MEDS: Cefdinir 300 MG CAP PO SCH (20:30)
[2019-04-07] MEDS ORDERED: Apixaban 5 MG TAB PO SCH ×2 (06:00→21:00)
[2019-04-07] MEDS: Ferrous Sulfate 325 MG TAB PO SCH ×2 (08:34→17:29)
[2019-04-07] MEDS: Cefdinir 300 MG CAP PO SCH ×2 (08:34→20:24)
[2019-04-07] MEDS: Famotidine 20 MG TAB PO SCH ×2 (08:34→20:24)
--- NOTE | 2019-04-07 10:08 | EKG ---
Test Reason : Blood Pressure : / mmHG Vent. Rate : 151 BPM Atrial Rate : 153 BPM P-R Int : 000 ms QRS Dur : 130 ms QT Int : 282 ms P-R-T Axes : 000 -48 -31 degrees QTc Int : 446 ms Sinus tachycardia Left axis deviation Right bundle branch block Inferior infarct (cited on or before 02-APR-2019) Abnormal ECG Confirmed by DEEPAK ALMODOVAR MD ([id number]) on 04/07/2019 10:08:12 AM Referred By: LAURA Confirmed By:DEEPAK ALMODOVAR MD
[2019-04-07 20:19] VITALS: BP 103/71; TEMP 98.5
--- NOTE | 2019-04-08 23:05 | DIS ---
DATE OF ADMISSION: 04/02/2019 DATE OF DISCHARGE: 04/07/2019 PRIMARY CARE PHYSICIAN: Dr. Ocampo. DISCHARGE DIAGNOSES: 1. Acute pulmonary embolism. 2. Probable community-acquired pneumonia. 3. Right lower extremity deep vein thrombosis. 4. History of bipolar disorder. DISCHARGE MEDICATIONS: 1. Eliquis at 10 mg twice a day for one week followed by 5 mg twice a day. The patient was given an Eliquis starter pack. 2. Omnicef 300 mg twice a day for 5 days. 3. Ferrous sulfate 325 mg daily. PROCEDURES DONE DURING THIS ADMISSION: The patient had a lower extremity venous Doppler, which showed extensive deep vein thrombosis in the right lower extremity. The patient also had a CT angiogram of the chest, which demonstrated a large volume extensive bilateral pulmonary emboli with possible infarction in the left lower lobe. The patient had an echocardiogram which showed an EF of 55% to 60%. There was some E to A flow reversal suggestive of diastolic dysfunction. The right ventricle is mildly enlarged. CODE STATUS: Full code. ALLERGIES: NO KNOWN DRUG ALLERGIES. HOSPITAL COURSE: Mr. Ardon is a pleasant 68-year-old gentleman, who was brought to the hospital by his daughter in that she felt he did not look as well as he normally did. The patient admitted to feeling basically not well and falling a lot. He was admitted due to presumed pneumonia based on the x-ray finding; however, he was also discovered to have a deep vein thrombosis in the right lower extremity. He was started on anticoagulation for this. Later in his hospital stay, it was found that he had a pulmonary embolism, however, likely this was present on admission and it is possible that the findings on chest x-ray represent acute infarction instead of a pneumonia. Nevertheless, he will be discharged on Omnicef to complete the course of antibiotics. He was also given a 1-month free sample of Eliquis and the phone number to continue the treatment. This was given to his and daughter, so that they could home help aide in this process. We also offered help with nutritional supplements. We also discussed whether he needed any help at home. His and the patient himself stated that they did not feel they needed any additional help such as home health or meals on wheels, etc., and the patient was subsequently discharged home. Job ID: [id number]
--- NOTE | 2019-04-11 01:11 | PQF ---
TO CHING TONI MD [id number] CLINICAL DOCUMENTATION CLARIFICATION FORM: POST DISCHARGE Addendum to original discharge summary date: ____ Late entry note date: __ DATE:04/12/2019 ATTN: ELIAZAR SANCHEZ MD Please exercise your independent, professional judgment in responding to the clarification form. Clinical indicators are provided on the bottom of this form for your review Please check appropriate box(es): [ X ] Sepsis due to: (Pna, UTI, gangrenous gall bladder, etc.) ____Pneumonia___ Due to: [ ] Device (please specify) [ ] Implant [ ] Graft [ ] Infusion [ ] SIRS due to non-infectious process (please specify etiology) [ ] with organ dysfunction [ X ] without organ dysfunction [ ] Severe sepsis with acute organ dysfunction of: (Examples: respiratory failure, encephalopathy, acute kidney failure, other) [ ] Septic Shock [ ] Localized infection without sepsis [ ] Other diagnosis [ ] Unable to determine In addition, please specify: Present on Admission (POA): [ X ] Yes [ ] No [ ] Unable to determine For continuity of documentation, please document condition throughout progress notes and discharge summary. Thank You. CLINICAL INDICATORS - SIGNS / SYMPTOMS / LABS Sepsis documented in ED report on 04/02/19 by MD Bita Aguirre WBC 19.6 as per laboratory vital signs on 04/02/19 Elevated temperature of 100.1 F as per laboratory vital signs on 04/04/19 Respiratory rate of 24 as per laboratory vital signs on 04/03/19 BP 94/61 as per laboratory vital signs on 04/04/19 Community acquired pneumonia documented in Hospitalist PN on 04/04/[address] Tio Leon RISK FACTORS Community acquired pneumonia documented in Hospitalist PN on 04/04/[address] Tio Leon TREATMENTS: Patient was treated with IV antibiotics per medication administration and was discharged with prescription of Omnicef for a duration of 5 days per DS on by Dr. Tio Leon SAP Mail Clerk [employer] Winform Viewer (This form is maintained as a part of the permanent medical record) 2014 [email or web address]. All Rights Reserved [email or web address] [not provided] [email or web address]
== END 2019-04-07 23:27 | disposition home or self-care (01) | DRG 871 ==
LOC: ERS 16:56 → T4-B 20:45 → 2NO 04-04 11:00
PROVIDERS: ADMIT Internal Medicine; ATTEND Internal Medicine
DX: A41.9 Sepsis, unspecified organism (principal); J18.9 Pneumonia, unspecified organism; I26.99 Other pulmonary embolism without acute cor pulmonale; I82.401 Acute embolism and thrombosis of unspecified deep veins of right lower extremity; E44.0 Moderate protein-calorie malnutrition; F31.9 Bipolar disorder, unspecified; D63.8 Anemia in other chronic diseases classified elsewhere; D50.9 Iron deficiency anemia, unspecified
CPT/HCPCS: 36415; 51701; 71045; 71275; 80048; 80053; 81003; 81015; 82274; 82728; 83540; 83550; 83605; 85025; 87040; 90471; 90662; 93005; 93010; 93306; 96361; 96365; G0008; G0103; J0456; J0696; J1650; J3490; J7050; Q9966

== ENCOUNTER 2021-10-28 18:05 | Emergency (ER) | payer MEDICARE ==
[2021-10-28 19:00] LABS: #Eosinphils 0.1 thou/uL (0.0-0.7); #Lymphocytes 0.5 thou/uL (1.20-3.40); #Monocytes 0.5 thou/uL (0.11-0.59); #Neutrophils 3.8 thou/uL (1.40-6.50); %Basophils 0.6 % (0.0-1.0); %Eosinophils 2.1 % (0.0-10.0); %Lymphocytes 9.2 % (21.0-51.0); %Monocytes 10.2 % (0.0-10.0); %Neutrophils 77.9 % (42.0-75.0); Hemoglobin 14.9 g/dL (14.0-18.0); Mean Corpuscular HGB CONC 32.5 g/dL (32.0-36.0); Mean Corpuscular Hemoglobin 30.9 pg (27.0-31.0); Mean Corpuscular Volume 95.4 fL (78.0-98.0); Platelet Count 182 thou/uL (130-400); RBC Distribution Width 12.3 % (11.5-14.5); White Blood Cell (WBC) Count 4.9 thou/uL (4.8-10.8)
[2021-10-28 19:23] LABS: ALT (SGPT) 22 U/L (8-55); AST (SGOT) 27 U/L (5-34); Albumin 3.5 g/dL (3.4-4.8); Alkaline Phosphatase 87 U/L (40-110); Anion Gap 12 mmol/L (10-20); BUN (Urea Nitrogen) 18 mg/dL (8.4-25.7); Bilirubin, Total 0.9 mg/dL (0.2-1.2); CK (CPK) 166 U/L (30-200); Calc. Creatinine Clearance 0 mL/min (70-130); Calcium 8.9 mg/dL (7.8-10.44); Carbon Dioxide 24 mmol/L (23-31); Chloride 103 mmol/L (98-107); Glucose 89 mg/dL (80-115); Lipase 22 U/L (8-78); Magnesium 2.2 mg/dL (1.6-2.6); Potassium 4.1 mmol/L (3.5-5.1); Protein, Total 6.5 g/dL (5.8-8.1); Sodium 135 mmol/L (136-145)
[2021-10-28 19:48] LABS: Bilirubin Negative (Negative); Blood, Urine Negative (Negative); Clarity Clear (Clear); Glucose, Urine (Dipstick) Normal (Negative); Ketone, Urine 10 mg/dL (Negative); Leukocyte Negative Leu/uL (Negative); Nitrite Negative (Negative); Protein, Urine (Dipstick) 10 mg/dL (Neg-Trace); Specific Gravity, Urine 1.029 (1.002-1.036); Urobilinogen 3 mg/dL (Less than 2); pH, Urine 6.5 (5.0-9.0)
== END 2021-10-28 21:17 ==
LOC: ERS 18:05
DX: Z72.3 Lack of physical exercise (principal); R53.1 Weakness; R25.1 Tremor, unspecified; I45.10 Unspecified right bundle-branch block
CPT/HCPCS: 36415; 80053; 81003; 82550; 83605; 83690; 83735; 85025; 87086; 93005; 94760

== ENCOUNTER 2024-06-05 23:20 | Inpatient (IN) | payer MEDICARE ==
[2024-06-05] MEDS ORDERED: Thiamine HCl 200 MG/2 ML VIAL ONE (23:40)
[2024-06-05 23:57] LABS: #Basophils 0.03 10x3/uL (0.0-0.2); #Eosinophils Less than 0.03 10x3/uL (0.0-0.7); %Basophils 0.4 % (0.0-1.0); %Eosinophils 0.1 % (0.0-10.0); %Lymphocytes 1.5 % (21.0-51.0); %Monocytes 6.7 % (0.0-10.0); %Neutrophils 91.1 % (42.0-75.0); Hematocrit 42.2 % (42.0-52.0); Hemoglobin 14.5 g/dL (14.0-18.0); Mean Corpuscular HGB CONC 34.4 g/dL (32.0-36.0); Mean Corpuscular Hemoglobin 32.7 pg (27.0-31.0); Mean Corpuscular Volume 95.3 fL (78.0-98.0); Mean Platelet Volume 10.9 fL (7.4-10.4); Platelet Count 172 10x3/uL (130-400); RBC Distribution Width 12.7 % (11.5-14.5); Red Blood Cell (RBC) Count 4.43 mill/uL (4.70-6.10)
[2024-06-06 00:14] LABS: Actual Bicarbonate (HCO3v) 22.7 mEq/L (22-28); Analyzer IN Cardio ER; Calcium, Ionized (venous) 1.09 mmol/L (1.16-1.32); Chloride (VBG) 103 mmol/L (98-106); Hematocrit-VBG 45 % (42.0-52.0); Hemoglobin (Hb) 15.3 g/dL (12.6-17.4); Potassium (VBG) 4.67 mmol/L (3.70-5.30); Sodium 139 mmol/L (133-146); pH (venous) 7.472 (7.32-7.43)
[2024-06-06 00:14] LABS: ALT (SGPT) 27 U/L (8-55); AST (SGOT) 43 U/L (5-34); Acetaminophen Less than 10 mcg/mL (Less than 10); Albumin 3.8 g/dL (3.4-4.8); Alcohol Less than 10.0 mg/dL (Less than 10); Alkaline Phosphatase 93 U/L (40-110); Anion Gap 17 mmol/L (10-20); BUN (Urea Nitrogen) 30 mg/dL (8.4-25.7); Bilirubin, Total 1.4 mg/dL (0.2-1.2); CK (CPK) 591 U/L (30-200); Calc. Creatinine Clearance 0 mL/min (70-130); Calcium 9.2 mg/dL (7.8-10.44); Carbon Dioxide 21 mmol/L (23-31); Chloride 107 mmol/L (98-107); Estimated GFR 101; Globulin 3.1 g/dL (2.4-3.5); Glucose 100 mg/dL (83-110); Protein, Total 6.9 g/dL (5.8-8.1); Salicylate Less than 8.0 mg/dL (Less than 8.0); Sodium 141 mmol/L (136-145)
[2024-06-06 00:18] LABS: Troponin I Less than 0.010 ng/mL (< 0.028)
[2024-06-06] MEDS ORDERED: Thiamine HCl 200 MG/2 ML VIAL ONE (01:27)
[2024-06-06 03:49] VITALS: BMI 15.7
[2024-06-06] MEDS ORDERED: Calcium Carbonate 500 MG ChewTAB PO PRN (03:58)
[2024-06-06] MEDS ORDERED: Senokot S 8.6-50 MG TAB PO PRN (03:58)
[2024-06-06] MEDS: Folic Acid 1 MG TAB PO SCH ×2 (04:49→20:37)
[2024-06-06] MEDS: Magnesium 2 GM/50 ML(in water) 2 GM in Premix 1 BAG IVPB SCH (04:50)
[2024-06-06] MEDS: Thiamine HCl 500 MG in Sodium Chloride 0.9% 250 ML 250 ML IVPB SCH (05:58)
[2024-06-06 07:32] LABS: INR-International Normal Ratio 1.2; PTT 28.7 sec (22.9-36.1); Prothrombin Time 14.8 sec (12.0-14.7)
[2024-06-06 07:34] LABS: Troponin I Less than 0.010 ng/mL (< 0.028)
[2024-06-06] MEDS: Famotidine 20 MG TAB PO SCH (09:14)
[2024-06-06] MEDS: Cyanocobalamin 1000 MCG/ML VIAL IM SCH (09:14)
[2024-06-06] MEDS: Multivit, Therapeutic 1 TAB PO SCH (09:14)
[2024-06-06] MEDS: pyridOXINE 50 MG (B6) TAB PO SCH (09:14)
[2024-06-06 11:23] LABS: Syphilis Antibody Nonreactive (Nonreactive); Syphilis Antibody Index 0.07 S/CO (<1.00 Non-Reactive)
[2024-06-06 11:23] LABS: Acetaminophen Less than 10 mcg/mL (Less than 10); Alcohol Less than 10.0 mg/dL (Less than 10); Salicylate Less than 8.0 mg/dL (Less than 8.0)
[2024-06-06 13:41] VITALS: BMI 15.7
[2024-06-06] MEDS: Ergocalciferol 1.25 MG(50,000 UNITS) CAP PO SCH (20:36)
[2024-06-06] MEDS: Cyanocobalamin (Vitamin B-12) 1,000 MCG TAB PO SCH (20:37)
[2024-06-07 04:30] LABS: #Basophils 0.03 10x3/uL (0.0-0.2); %Basophils 0.5 % (0.0-1.0); %Eosinophils 2.5 % (0.0-10.0); %Lymphocytes 3.8 % (21.0-51.0); %Monocytes 8.9 % (0.0-10.0); %Neutrophils 84.1 % (42.0-75.0); Hemoglobin 13.2 g/dL (14.0-18.0); Mean Corpuscular HGB CONC 33.8 g/dL (32.0-36.0); Mean Corpuscular Hemoglobin 32.4 pg (27.0-31.0); Mean Corpuscular Volume 95.8 fL (78.0-98.0); Mean Platelet Volume 11.2 fL (7.4-10.4); Platelet Count 146 10x3/uL (130-400); RBC Distribution Width 12.6 % (11.5-14.5); Red Blood Cell (RBC) Count 4.07 mill/uL (4.70-6.10)
[2024-06-07 05:10] LABS: ALT (SGPT) 26 U/L (8-55); AST (SGOT) 50 U/L (5-34); Albumin 3.3 g/dL (3.4-4.8); Alkaline Phosphatase 73 U/L (40-110); Anion Gap 13 mmol/L (10-20); BUN (Urea Nitrogen) 20 mg/dL (8.4-25.7); Bilirubin, Total 1.1 mg/dL (0.2-1.2); Calc. Creatinine Clearance 83 mL/min (70-130); Calcium 8.5 mg/dL (7.8-10.44); Carbon Dioxide 21 mmol/L (23-31); Chloride 104 mmol/L (98-107); Estimated GFR 100; Globulin 2.5 g/dL (2.4-3.5); Glucose 78 mg/dL (83-110); Magnesium 1.9 mg/dL (1.6-2.6); Phosphorus 2.4 mg/dL (2.3-4.7); Potassium 3.7 mmol/L (3.5-5.1); Protein, Total 5.8 g/dL (5.8-8.1); Sodium 134 mmol/L (136-145)
[2024-06-07] MEDS: Calcium Carbonate 600 MG + Vit D TAB PO SCH (08:49)
[2024-06-07] MEDS ORDERED: Lorazepam 2 MG/ML VIAL SLOW IVP SCH (19:30)
[2024-06-07] MEDS: Thiamine 100 MG TAB PO SCH (20:11)
[2024-06-07] MEDS: Lorazepam 0.5 MG TAB PO SCH (20:12)
[2024-06-08 09:54] LABS: #Basophils 0.04 10x3/uL (0.0-0.2); %Basophils 0.7 % (0.0-1.0); %Eosinophils 1.7 % (0.0-10.0); %Lymphocytes 4.3 % (21.0-51.0); %Monocytes 7.3 % (0.0-10.0); %Neutrophils 85.3 % (42.0-75.0); Hematocrit 41.7 % (42.0-52.0); Hemoglobin 14.2 g/dL (14.0-18.0); Mean Corpuscular HGB CONC 34.1 g/dL (32.0-36.0); Mean Corpuscular Hemoglobin 32.6 pg (27.0-31.0); Mean Corpuscular Volume 95.6 fL (78.0-98.0); Mean Platelet Volume 10.9 fL (7.4-10.4); Platelet Count 156 10x3/uL (130-400); RBC Distribution Width 12.6 % (11.5-14.5); Red Blood Cell (RBC) Count 4.36 mill/uL (4.70-6.10)
[2024-06-08] MEDS: Thiamine HCl 250 MG, Admixture Fee 1 EACH in Sodium Chloride 0.9% 100 ML IVPB SCH (09:55)
[2024-06-08 10:30] LABS: Anion Gap 13 mmol/L (10-20); BUN (Urea Nitrogen) 20 mg/dL (8.4-25.7); Calc. Creatinine Clearance 75 mL/min (70-130); Calcium 9.1 mg/dL (7.8-10.44); Carbon Dioxide 25 mmol/L (23-31); Chloride 103 mmol/L (98-107); Estimated GFR 97; Glucose 112 mg/dL (83-110); Potassium 3.9 mmol/L (3.5-5.1); Sodium 137 mmol/L (136-145)
[2024-06-08] MEDS: Lorazepam 1 MG TAB PO PRN (16:43)
[2024-06-09] MEDS: Lorazepam 0.5 MG TAB PO PRN (08:12)
[2024-06-09] MEDS: QUEtiapine 100 MG TAB PO SCH (16:37)
[2024-06-09] MEDS: Haloperidol Lactate 5 MG/ML VIAL IM SCH (22:16)
[2024-06-10] MEDS: Enoxaparin 40 MG (0.4 mL) SYRINGE SC SCH (09:35)
[2024-06-10] MEDS: QUEtiapine 100 MG TAB PO SCH ×2 (16:15→20:27)
[2024-06-10 16:46] LABS: Amphetamine Not Detected (NotDetected); Barbiturates Screen Not Detected (NotDetected); Benzodiazepine Screen Detected (NotDetected); Cocaine Metabolite Screen Not Detected (NotDetected); Methadone Not Detected (NotDetected); Methamphetamine Not Detected (NotDetected); Opiate Screen Not Detected (NotDetected); Oxycodone Screen Not Detected (NotDetected); Phencyclidine (PCP) Not Detected (NotDetected); THC/Cannabinoid Screen Detected (NotDetected); Tricyclic Screen Not Detected (NotDetected)
[2024-06-10 17:11] LABS: Bacteria/HPF None Seen HPF (None Seen); Bilirubin Negative (Negative); Blood, Urine Negative (Negative); Clarity Clear (Clear); Glucose, Urine (Dipstick) Normal (Negative); Ketone, Urine Trace mg/dL (Negative); Leukocyte Negative Leu/uL (Negative); Nitrite Negative (Negative); Protein, Urine (Dipstick) Negative (Neg-Trace); RBC/HPF None Seen HPF (0-3); Specific Gravity, Urine 1.013 (1.002-1.036); Squamous Epithelial None Seen HPF (0-3); Urobilinogen Normal mg/dL (Less than 2); WBC/HPF 0-3 HPF (0-3); pH, Urine 6.5 (5.0-9.0)
[2024-06-12 08:03] LABS: #Basophils 0.03 10x3/uL (0.0-0.2); %Basophils 0.7 % (0.0-1.0); %Lymphocytes 4.6 % (21.0-51.0); %Monocytes 8.7 % (0.0-10.0); %Neutrophils 82.5 % (42.0-75.0); Hematocrit 43.5 % (42.0-52.0); Hemoglobin 14.8 g/dL (14.0-18.0); Mean Corpuscular Volume 94.2 fL (78.0-98.0); Mean Platelet Volume 11.3 fL (7.4-10.4); Platelet Count 161 10x3/uL (130-400); RBC Distribution Width 12.4 % (11.5-14.5); Red Blood Cell (RBC) Count 4.62 mill/uL (4.70-6.10)
[2024-06-12 08:13] LABS: Anion Gap 15 mmol/L (10-20); BUN (Urea Nitrogen) 13 mg/dL (8.4-25.7); Calc. Creatinine Clearance 82 mL/min (70-130); Calcium 9.5 mg/dL (7.8-10.44); Carbon Dioxide 21 mmol/L (23-31); Chloride 104 mmol/L (98-107); Estimated GFR 100; Glucose 75 mg/dL (83-110); Potassium 3.9 mmol/L (3.5-5.1); Sodium 136 mmol/L (136-145)
[2024-06-12 08:14] LABS: CRP,High Sensitivity (Inhouse) 0.35 mg/dL (< or = 0.5)
[2024-06-12 14:35] VITALS: BP 116/81; TEMP 98.5
[2024-06-13] MEDS ORDERED: Ergocalciferol 1.25 MG(50,000 UNITS) CAP PO SCH (09:00)
== END 2024-06-12 14:39 | DRG 885 ==
LOC: ERS 23:20 → 2SE 06-06 02:06 → OBSVTOIN 06-07 10:35 → MSONC 06-08 17:39
PROVIDERS: ADMIT Internal Medicine; ATTEND Internal Medicine
DX: F31.9 Bipolar disorder, unspecified (principal); G93.41 Metabolic encephalopathy; E87.20 Acidosis, unspecified; F20.9 Schizophrenia, unspecified; E83.42 Hypomagnesemia; E86.0 Dehydration; Z79.899 Other long term (current) drug therapy; F10.20 Alcohol dependence, uncomplicated
CPT/HCPCS: 36415; 70450; 71045; 80048; 80053; 80306; 80307; 81001; 82306; 82550; 82607; 82805; 83605; 83735; 84100; 84443; 84484; 85025; 85610; 85730; 86141; 86780; 87040; 93005; 93010; 96372; 96374; 96375; 96376; G0378; J1630; J1650; J3411; J3420; J3475; J3480; J7050

== ENCOUNTER 2025-05-14 13:55 | Outpatient (CLI) | payer MEDICARE ==
[~2025-05-14 13:55] MED LIST changes: +Iopamidol 370 76% 100 ML VIAL ONE; -Sodium Chloride 0.9% 15 ML NEB ONE
[2025-05-14 15:14] LABS: Estimated GFR - POC 102.0
== END 2025-05-14 13:56 | disposition home or self-care (01) ==
LOC: CT 13:55
PROVIDERS: ATTEND Otolaryngology Plastic Surgery within the Head & Neck
DX: R59.0 Localized enlarged lymph nodes (principal)
CPT/HCPCS: 36415; 70491; 82565; Q9967